=== PATIENT | female | born 1990 | race Caucasian/White ===

== ENCOUNTER 2018-07-23 14:19 | Emergency (ER) | payer MEDICAID ==
--- NOTE | 2018-07-23 14:34 | EDM.PDOC ---
ED HPI GENERAL MEDICAL PROBLEM - General Chief Complaint: Respiratory Problem Stated Complaint: SORE THROAT Time Seen by Provider: 07/23/18 14:31 Source of Information: Reports: Patient History Limitations: Reports: No Limitations - History of Present Illness INITIAL COMMENTS - FREE TEXT/NARRATIVE: Presents with productive cough, nasal congestion, fever, body aches and sore throat for 2 days. Seen at walk in clinic yesterday, rapid strep was negative. Denies shortness of breath. Patient did not receive flu shot this season. Onset Date: 07/22/18 Severity: Moderate Associated Symptoms: Reports: Cough, Fever/Chills - Related Data Allergies Allergy/AdvReac Type Severity Reaction Status Date / Time No Known Allergies Allergy Verified 07/23/18 14:39 Home Meds: Home Meds Amoxicillin/Clavulanate K [Augmentin 875-125 MG] 1 tab PO BID #20 tablet [Rx] Past Medical History - Past Health History Medical/Surgical History: Denies Medical/Surgical History Social & Family History - Tobacco Use Smoking Status *Q: Never Smoker ED ROS GENERAL - Review of Systems Review Of Systems: ROS reveals no pertinent complaints other than HPI. ED EXAM, GENERAL - Physical Exam Exam: See Below Exam Limited By: No Limitations General Appearance: Alert, WD/WN, No Apparent Distress Ears: Normal External Exam Nose: Normal Inspection, Other (+frontal sinus tenderness) Throat/Mouth: Normal Inspection, Normal Voice, No Airway Compromise Head: Atraumatic, Normocephalic Neck: Normal Inspection, Supple, Full Range of Motion Respiratory/Chest: No Respiratory Distress, Lungs Clear, Normal Breath Sounds Cardiovascular: Regular Rate, Rhythm, No Murmur GI/Abdominal: No Distention Extremities: Normal Range of Motion Neurological: Alert, Normal Cognition Psychiatric: Normal Affect, Normal Mood Skin Exam: Warm, Dry, Intact Course - Vital Signs Last Recorded V/S: Last Vital Signs Temp 37.7 C 07/23/18 14:19 Pulse 113 H 07/23/18 14:19 Resp 18 07/23/18 14:19 BP 128/80 07/23/18 14:19 Pulse Ox 100 07/23/18 14:19 - Orders/Labs/Meds Orders: Active Orders 24 hr Category Date Time Status CXR [Chest 2V] [CR] Stat Exams 07/23/18 14:30 Taken Labs: Influenza: negative Meds: Medications Discontinued Medications Generic Name Dose Route Start Last Admin Trade Name Shayy PRN Reason Stop Dose Admin Amoxicillin/Clavulanate Potassium 1 tab 07/23/18 15:12 Augmentin 875 Mg/125 Mg PO 07/23/18 15:13 ONETIME ONE Guaifenesin 1,200 mg 07/23/18 15:12 Mucinex PO 07/23/18 15:13 ONETIME ONE - Radiology Interpretation Free Text/Narrative:: CXR: NAD Departure - Departure Time of Disposition: 15:13 Disposition: Home, Self-Care 01 Condition: Good Clinical Impression: Sinusitis, acute Qualifiers: Sinusitis location: frontal Recurrence: non-recurrent Qualified Code(s): J01.10 - Acute frontal sinusitis, unspecified - Discharge Information *PRESCRIPTION DRUG MONITORING PROGRAM REVIEWED*: No *COPY OF PRESCRIPTION DRUG MONITORING REPORT IN PATIENT AMERICO: Not Applicable Prescriptions: Amoxicillin/Clavulanate K [Augmentin 875-125 MG] 1 tab PO BID #20 tablet Referrals: PCP,None [Primary Care Provider] - Forms: ED Department Discharge Additional Instructions: Fill prescription for Augmentin and take as directed. Take OTC Mucinex as needed. May also take Tylenol or Ibuprofen as needed for body aches and fever. Follow up in 2-3 days if symptoms don't improve. Return to the ER if symptoms worsen. - My Orders Last 24 Hours: My Active Orders 07/23/18 14:30 CXR [Chest 2V] [CR] Stat - Assessment/Plan Last 24 Hours: My Active Orders 07/23/18 14:30 CXR [Chest 2V] [CR] Stat
[2018-07-23] MEDS ORDERED: Amoxicillin/Clavulanate K 875-125 MG Tab PO ONE (15:12)
[2018-07-23] MEDS ORDERED: guaiFENesin 600 MG Tab.ER PO ONE (15:12)
--- NOTE | 2018-07-24 11:40 | CR ---
INDICATION: Cough. CHEST: PA and lateral views of the chest were obtained 07/23/18 and revealed the heart to be normal in size and shape. Mediastinum and bony thorax were unremarkable. A consolidating pneumonia or effusion was not identified. However, there is bronchial wall cuffing at the lung bases, which may be on the basis of active peribronchial disease and should be correlated clinically. IMPRESSION: Bronchial wall cuffing with no other evidence of active disease - correlate clinically, as may represent active peribronchial disease and/or fibrosis. MTDD
== END 2018-07-23 15:31 | disposition home or self-care (01) ==
LOC: FB.ED 14:19
DX: J01.10 Acute frontal sinusitis, unspecified (principal)
CPT/HCPCS: 71046; 87804; 87804-59; 99283; A9270-GY

== ENCOUNTER 2019-06-05 00:11 | Emergency (ER) | payer MEDICAID ==
--- NOTE | 2019-06-05 00:54 | EDM.PDOC ---
ED HPI GENERAL MEDICAL PROBLEM - General Chief Complaint: Respiratory Problem Stated Complaint: POSSIBLE INFLUEZNA; BLADDER INFECTION Time Seen by Provider: 06/05/19 00:25 Source of Information: Reports: Patient History Limitations: Reports: No Limitations - History of Present Illness INITIAL COMMENTS - FREE TEXT/NARRATIVE: Paty comes into [facility] ED with sxs of low grade fever, nonproductive cough, and concerns she may have Influenza. Her spouse was diagnosed with Inf. A last week. She has tried no meds. In addition, she would like a UA owing to recent sxs of urinary burnng with voiding. There is a remote hx of stone disease. low back Pain Score (Numeric/FACES): 5 - Related Data Allergies Allergy/AdvReac Type Severity Reaction Status Date / Time No Known Allergies Allergy Verified 06/05/19 01:09 Home Meds: Home Meds Amoxicillin/Clavulanate K [Augmentin 875-125 MG] 1 tab PO BID #20 tablet [Rx] Past Medical History - Past Health History Medical/Surgical History: Denies Medical/Surgical History Social & Family History - Family History Family Medical History: Noncontributory - Caffeine Use Caffeine Use: Reports: None ED ROS GENERAL - Review of Systems Review Of Systems: See Below Constitutional: Reports: Fever HEENT: Reports: No Symptoms Respiratory: Reports: Cough Cardiovascular: Reports: No Symptoms Endocrine: Reports: No Symptoms GI/Abdominal: Reports: No Symptoms : Reports: Dysuria, Frequency Musculoskeletal: Reports: No Symptoms Skin: Reports: No Symptoms Neurological: Reports: No Symptoms Psychiatric: Reports: No Symptoms Hematologic/Lymphatic: Reports: No Symptoms Immunologic: Reports: No Symptoms ED EXAM, GENERAL - Physical Exam Exam: See Below Exam Limited By: No Limitations General Appearance: Alert, WD/WN, No Apparent Distress, Obese Eye Exam: Bilateral Eye: EOMI, Normal Inspection, PERRL Ears: Normal External Exam, Normal TMs Nose: Normal Inspection Throat/Mouth: Normal Inspection, Normal Oropharynx, Normal Voice Head: Normocephalic Neck: Normal Inspection, Supple, Non-Tender Respiratory/Chest: Lungs Clear Cardiovascular: Regular Rate, Rhythm, No Murmur GI/Abdominal: Normal Bowel Sounds, Soft, Non-Tender, No Organomegaly, No Distention, No Mass (Female) Exam: Deferred Rectal (Female) Exam: Deferred Back Exam: Normal Inspection Extremities: Normal Inspection Neurological: Alert, Oriented, CN II-XII Intact, Normal Cognition, No Motor/ Sensory Deficits Psychiatric: Normal Affect, Normal Mood Skin Exam: Warm, Dry, Intact, Normal Color Lymphatic: No Adenopathy Course - Vital Signs Text/Narrative:: Following assessment, I obtained a UA noting normal findings. The Rapid Inf A&B screen was also negative. Last Recorded V/S: Last Vital Signs Temp 38.4 C H 06/05/19 00:20 Pulse 120 H 06/05/19 00:20 Resp 17 06/05/19 00:20 BP 118/77 06/05/19 00:20 Pulse Ox 100 06/05/19 00:20 - Orders/Labs/Meds Labs: Laboratory Tests 06/05/19 Range/Units 00:19 Urine Color Yellow (YELLOW) Urine Appearance Slightly cloudy (CLEAR) Urine pH 7.0 H (5.0-6.5) Ur Specific [place] 1.020 (1.010-1.025) Urine Protein Negative (NEGATIVE) mg/dL Urine Glucose (UA) Normal (NORMAL) mg/dL Urine Ketones Negative (NEGATIVE) mg/dL Urine Occult Blood Negative (NEGATIVE) Urine Nitrite Negative (NEGATIVE) Urine Bilirubin Negative (NEGATIVE) Urine Urobilinogen Normal (NEGATIVE) mg/dL Ur Leukocyte Esterase Negative (NEGATIVE) Urine RBC 0-5 (0-5) Urine WBC 0-5 (0-5) Ur Squamous Epith Cells Few H (NS,R,O) Urine Bacteria Few H (NS) Urine Mucus Few H (NS) Departure - Departure Time of Disposition: 01:37 Disposition: Home, Self-Care 01 Condition: Fair Clinical Impression: Viral respiratory illness - Discharge Information *PRESCRIPTION DRUG MONITORING PROGRAM REVIEWED*: Not Applicable *COPY OF PRESCRIPTION DRUG MONITORING REPORT IN PATIENT AMERICO: Not Applicable Forms: ED Department Discharge Sepsis Event Note - Focused Exam Vital Signs: Vital Signs Temp Pulse Resp BP Pulse Ox 06/05/19 00:20 38.4 C H 120 H 17 118/77 100 Date Exam was Performed: 06/05/19 Time Exam was Performed: 01:37 - Problem List & Annotations (1) Viral respiratory illness SNOMED Code(s): 119811848 Code(s): J98.8 - OTHER SPECIFIED RESPIRATORY DISORDERS; B97.89 - OTH VIRAL AGENTS THE CAUSE OF DISEASES CLASSD ELSWHR Status: Acute Current Visit: Yes Annotation/Comment:: Mom is agreeable to influenza prophylaxis, and I dispensed Tamiflu 75 mg qd x 10 days. - Problem List Review Problem List Initiated/Reviewed/Updated: Yes - Assessment/Plan Plan: Follow up if needed.
== END 2019-06-05 01:58 | disposition home or self-care (01) ==
LOC: FB.ED 00:11
DX: B34.9 Viral infection, unspecified (principal)
CPT/HCPCS: 81001; 87804; 87804-59; 99283

== ENCOUNTER 2020-09-17 07:41 | Emergency (ER) | payer MEDICAID ==
[2020-09-17] MEDS ORDERED: Ondansetron 4 MG Tab.DIS PO ONE (08:46)
[2020-09-17] MEDS ORDERED: Ketorolac 60 MG/2 ML SDV IM ONE (08:52)
--- NOTE | 2020-09-17 08:53 | EDM.PDOC ---
ED HPI GENERAL MEDICAL PROBLEM - General Chief Complaint: Flank Pain Stated Complaint: SEVER BACK PAIN Time Seen by Provider: 09/17/20 08:20 Source of Information: Reports: Patient History Limitations: Reports: No Limitations - History of Present Illness INITIAL COMMENTS - FREE TEXT/NARRATIVE: c/o LBP and RUQ pain x 1w pain has been sharp, different than MS pain that she has had in the past, pain in back is just above R iliac crest, nontender on exam today, pt says pain is a little more on the inside pain in RUQ is different than LBP pain, one does not radiate to the other, she thinks they are different pains, no change in pain with eating PSH: c/s x 2, no other abd surgery 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, inc'd pain last night, did not sleep well d/t abd and back pain, took ibuprofen 200 mg x 2 at 4a which did not help saw Dr Arboleda in clinic 2d ago, abd XR reported to show normal gas pattern, blood work done altho results not back no GB problems in past XR 2d ago did show kidney stones in the kidney, pt says her father has h/o kidney stones no f/c/d Right Flank Pain Score (Numeric/FACES): 7 - Related Data Allergies Allergy/AdvReac Type Severity Reaction Status Date / Time bee venom protein (honey bee) Allergy Airway Verified 09/17/20 09:14 Tightness Home Meds: Home Meds Ibuprofen 200 mg PO ASDIRECTED PRN 09/17/20 [History] Omeprazole 20 mg PO DAILY #10 tablet. 09/17/20 [Rx] Ondansetron [Ondansetron ODT] 4 mg PO Q4H PRN #4 tab.rapleyla 09/17/20 [Rx] Past Medical History - Past Health History Medical/Surgical History: Denies Medical/Surgical History Cardiovascular History: Reports: None Respiratory History: Reports: None Gastrointestinal History: Reports: None Genitourinary History: Reports: None [employer] History: Reports: Musculoskeletal History: Reports: Back Pain, Chronic Neurological History: Reports: None Psychiatric History: Reports: Anxiety Endocrine/Metabolic History: Reports: None Hematologic History: Reports: None Immunologic History: Reports: None Oncologic (Cancer) History: Reports: None Dermatologic History: Reports: None - Past Surgical History Cardiovascular Surgical History: Reports: None Respiratory Surgical History: Reports: None GI Surgical History: Reports: None Female Surgical History: Reports: Section Other Female Surgeries/Procedures: CS x 2 Endocrine Surgical History: Reports: None Neurological Surgical History: Reports: None Musculoskeletal Surgical History: Reports: None Oncologic Surgical History: Reports: None Dermatological Surgical History: Reports: None Social & Family History - Family History Family Medical History: No Pertinent Family History - Tobacco Use Tobacco Use Status *Q: Never Tobacco User - Caffeine Use Caffeine Use: Reports: Soda - Recreational Drug Use Recreational Drug Use: No ED ROS GENERAL - Review of Systems Review Of Systems: See Below Constitutional: Reports: No Symptoms HEENT: Reports: No Symptoms Respiratory: Reports: No Symptoms Cardiovascular: Reports: No Symptoms Endocrine: Reports: No Symptoms GI/Abdominal: Reports: Abdominal Pain, Nausea. Denies: Vomiting : Reports: No Symptoms Musculoskeletal: Reports: Back Pain Skin: Reports: No Symptoms Neurological: Reports: No Symptoms Psychiatric: Reports: No Symptoms Hematologic/Lymphatic: Reports: No Symptoms Immunologic: Reports: No Symptoms ED EXAM, GENERAL - Physical Exam Exam: See Below Exam Limited By: No Limitations General Appearance: Alert, WD/WN, No Apparent Distress, Other (alert, nonill, moves easily, normal speech, cooperative) Ears: Hearing Grossly Normal Throat/Mouth: Normal Voice, No Airway Compromise Head: Atraumatic, Normocephalic Neck: Normal Inspection, Supple, Non-Tender, Full Range of Motion. No: Lymphadenopathy (R), Lymphadenopathy (L) Respiratory/Chest: No Respiratory Distress, Lungs Clear, Normal Breath Sounds, No Accessory Muscle Use, Chest Non-Tender Cardiovascular: Normal Peripheral Pulses, Regular Rate, Rhythm, No Edema, No Gallop, No Murmur, No Rub GI/Abdominal: Soft, Other (mild tender at Abernathy's point (no increase with deep breath), mild tender epigastrium a little more so than Abernathy's point) Back Exam: Normal Inspection, Full Range of Motion, Other (no point tender, NT at SI joints, NT at iliac crests, NT at l-spine). No: CVA Tenderness (R), CVA Tenderness (L), Muscle Spasm Extremities: Normal Inspection, Normal Range of Motion, Non-Tender Neurological: Alert, Oriented, CN II-XII Intact, Normal Cognition, No Motor/Sensory Deficits Psychiatric: Normal Affect, Normal Mood Skin Exam: Warm, Dry, Intact, Normal Color, No Rash Lymphatic: No Adenopathy Course - Vital Signs Last Recorded V/S: Last Vital Signs Temp 36.7 C 09/17/20 07:41 Pulse 84 09/17/20 07:41 Resp 16 09/17/20 07:41 BP 143/84 H 09/17/20 07:41 Pulse Ox 100 09/17/20 07:41 - Orders/Labs/Meds Labs: Laboratory Tests 09/17/20 09/17/20 09/17/20 Range/Units 09:00 09:00 09:00 WBC 5.2 (3.0-10.3) x10-3/uL RBC 4.78 (3.60-5.20) x10(6)uL Hgb 13.8 (11.4-15.5) g/dL Hct 40.6 (34.2-48.2) % MCV 85.0 (76.7-100.5) fL MCH 28.9 (23.9-33.9) pg MCHC 34.0 (31.9-34.8) g/dL RDW 13.4 (12.3-16.5) % Plt Count 276 (151-488) x10(3)uL MPV 7.2 (7.1-12.4) fL Neut % (Auto) 68.5 (30.8-76.2) % Lymph % (Auto) 24.8 (18.4-52.1) % [place] % (Auto) 5.0 (4.4-15.7) % Eos % (Auto) 0.8 (0.6-8.1) % Baso % (Auto) 0.9 (0.2-1.5) % Neut # (Auto) 3.6 (1.5-6.3) x10-3/uL Lymph # (Auto) 1.3 (1.0-4.4) x10-3/uL [place] # (Auto) 0.3 (0.3-1.0) x10-3/uL Eos # (Auto) 0.0 (0.0-0.8) x10-3/uL Baso # (Auto) 0.0 (0.0-0.1) x10-3/uL Sodium 141 (135-145) mmol/L Potassium 3.9 (3.5-5.3) mmol/L Chloride 104 (100-110) mmol/L Carbon Dioxide 23 (21-32) mmol/L BUN 10 (7-18) mg/dL Creatinine 0.8 (0.55-1.02) mg/dL Est Cr Clr Drug Dosing 98.01 mL/min Estimated GFR (MDRD) > 60 (>60) BUN/Creatinine Ratio 12.5 (9-20) Glucose 102 (80-116) mg/dL Calcium 9.1 (8.6-10.2) mg/dL Total Bilirubin 0.8 (0.1-1.3) mg/dL AST 22 (5-25) IU/L ALT 35 (12-36) U/L Alkaline Phosphatase 64 (56-112) IU/L C-Reactive Protein 0.5 (0.5-0.9) mg/dL Total Protein 7.5 (6.0-8.0) g/dL Albumin 4.1 (3.5-5.2) g/dL Globulin 3.4 g/dL Albumin/Globulin Ratio 1.2 Lipase 109 (73-393) U/L Urine Color (YELLOW) Urine Appearance (CLEAR) Urine pH (5.0-6.5) Ur Specific [place] (1.010-1.025) Urine Protein (NEGATIVE) mg/dL Urine Glucose (UA) (NORMAL) mg/dL Urine Ketones (NEGATIVE) mg/dL Urine Occult Blood (NEGATIVE) Urine Nitrite (NEGATIVE) Urine Bilirubin (NEGATIVE) Urine Urobilinogen (NEGATIVE) mg/dL Ur Leukocyte Esterase (NEGATIVE) Urine RBC (0-5) Urine WBC (0-5) Ur Squamous Epith Cells (NS,R,O) Urine Bacteria (NS) 09/17/20 Range/Units 09:35 WBC (3.0-10.3) x10-3/uL RBC (3.60-5.20) x10(6)uL Hgb (11.4-15.5) g/dL Hct (34.2-48.2) % MCV (76.7-100.5) fL MCH (23.9-33.9) pg MCHC (31.9-34.8) g/dL RDW (12.3-16.5) % Plt Count (151-488) x10(3)uL MPV (7.1-12.4) fL Neut % (Auto) (30.8-76.2) % Lymph % (Auto) (18.4-52.1) % [place] % (Auto) (4.4-15.7) % Eos % (Auto) (0.6-8.1) % Baso % (Auto) (0.2-1.5) % Neut # (Auto) (1.5-6.3) x10-3/uL Lymph # (Auto) (1.0-4.4) x10-3/uL [place] # (Auto) (0.3-1.0) x10-3/uL Eos # (Auto) (0.0-0.8) x10-3/uL Baso # (Auto) (0.0-0.1) x10-3/uL Sodium (135-145) mmol/L Potassium (3.5-5.3) mmol/L Chloride (100-110) mmol/L Carbon Dioxide (21-32) mmol/L BUN (7-18) mg/dL Creatinine (0.55-1.02) mg/dL Est Cr Clr Drug Dosing mL/min Estimated GFR (MDRD) (>60) BUN/Creatinine Ratio (9-20) Glucose (80-116) mg/dL Calcium (8.6-10.2) mg/dL Total Bilirubin (0.1-1.3) mg/dL AST (5-25) IU/L ALT (12-36) U/L Alkaline Phosphatase (56-112) IU/L C-Reactive Protein (0.5-0.9) mg/dL Total Protein (6.0-8.0) g/dL Albumin (3.5-5.2) g/dL Globulin g/dL Albumin/Globulin Ratio Lipase (73-393) U/L Urine Color Yellow (YELLOW) Urine Appearance Slightly cloudy (CLEAR) Urine pH 7.0 H (5.0-6.5) Ur Specific [place] 1.010 (1.010-1.025) Urine Protein Negative (NEGATIVE) mg/dL Urine Glucose (UA) Normal (NORMAL) mg/dL Urine Ketones Negative (NEGATIVE) mg/dL Urine Occult Blood Large H (NEGATIVE) Urine Nitrite Negative (NEGATIVE) Urine Bilirubin Negative (NEGATIVE) Urine Urobilinogen Normal (NEGATIVE) mg/dL Ur Leukocyte Esterase Negative (NEGATIVE) Urine RBC 30-40 H (0-5) Urine WBC 0-5 (0-5) Ur Squamous Epith Cells Occasional (NS,R,O) Urine Bacteria Rare H (NS) Meds: Medications Discontinued Medications Generic Name Dose Route Start Last Admin Trade Name Freq PRN Reason Stop Dose Admin Al Hydroxide/Mg Hydroxide 30 0 ml 09/17/20 08:54 09/17/20 08:58 ml/ Lidocaine HCl 15 ml PO 09/17/20 08:55 45 ml ONETIME ONE Administration Ketorolac Tromethamine 60 mg 09/17/20 08:52 09/17/20 08:57 Ketorolac 60 Mg/2 Ml Sdv IM 09/17/20 08:53 60 mg ONETIME ONE Administration Ondansetron HCl 4 mg 09/17/20 08:46 09/17/20 08:51 Ondansetron 4 Mg Tab.Dis PO 09/17/20 08:47 4 mg ONETIME ONE Administration - Re-Assessments/Exams Free Text/Narrative Re-Assessment/Exam: 09/17/20 10:13 labs reviewed with pt, all WNL pain from 7/10 to 3/10 RBC in urine is likely menstrual, cannot exclude kidney stone, however pain is continuous (no colic) and there is no change in renal function in 2d (no obstruction) imaging of low yield and will defer at present tender at Abernathy's point gone, still mild tender in epigastrium and under L SCM (c/w GERD) will tx sxs note given for work pt in agreement with plan Departure - Departure Time of Disposition: 10:06 Disposition: Home, Self-Care 01 Condition: Good Clinical Impression: GERD (gastroesophageal reflux disease), Low back pain - Discharge Information *PRESCRIPTION DRUG MONITORING PROGRAM REVIEWED*: Not Applicable *COPY OF PRESCRIPTION DRUG MONITORING REPORT IN PATIENT AMER[place]: Not Applicable Prescriptions: Omeprazole 20 mg PO DAILY #10 tablet. Ondansetron [Ondansetron ODT] 4 mg PO Q4H PRN #4 tab.rapdis PRN Reason: Nausea Instructions: Gastroesophageal Reflux Disease, Adult, Acute Back Pain, Adult Forms: ED Department Discharge, ED Return to Work/School Form Additional Instructions: Your tests are within normal limits. There is no evidence of infection. Your liver and kidney tests are normal and unchanged from 2 days ago. The cause of the right lower back pain is not entirely clear. The cause of the upper abdomen pain appears to be an acid reflux issue. To decrease acid production, take omeprazole 20 mg 1 tab daily for 10 days. To neutralize acid, take liquid antacid 30 ml 4 times a day for 3 days, 2 hours after meals and bedtime (or Tums or Rolaids 3 tabs 4 times a day, if you prefer). For nausea, take ondansetron 4 mg 1 tab under the tongue every 4 hours as needed. For back pain, take ibuprofen 200 mg 4 tabs 3 times a day for 3 days, longer if needed. See Dr Arboleda in 5 days if you are still having symptoms. Return to ED if you are feeling worse. May return to work tomorrow. Sepsis Event Note (ED) - Evaluation Sepsis Screening Result: No Definite Risk - Focused Exam Vital Signs: Vital Signs Temp Pulse Resp BP Pulse Ox 09/17/20 07:41 36.7 C 84 16 143/84 H 100
[2020-09-17] MEDS ORDERED: Alum Hydroxide/Mag Hydroxide 30 ML, Lidocaine 2% 15 ML PO ONE ×2 (08:54)
== END 2020-09-17 10:26 | disposition home or self-care (01) ==
LOC: FB.ED 07:41
DX: K21.9 Gastro-esophageal reflux disease without esophagitis (principal); M54.5 Low back pain; Z91.030 Bee allergy status; Z79.899 Other long term (current) drug therapy
CPT/HCPCS: 36415; 80053; 81001; 83690; 85025; 86140; 96372; 99284; A9270; J1885